=== PATIENT | male | born 1945 | race Caucasian/White ===

== ENCOUNTER 2025-02-27 16:57 | Emergency (ER) | payer MEDICARE ==
[~2025-02-27] VITALS: Ht 172.7 cm; Wt 82.0 kg
[2025-02-27 17:02] VITALS: PULSE 72; RESP 16; O2SAT 99
[2025-02-27 17:07] VITALS: BP 160/82; TEMP 36.9; O2SAT 98
[2025-02-27 17:37] LABS: BASOPHILS % 1.1 % (0.0-2.0); EOSINOPHILS % 1.9 % (0.0-5.0); HEMATOCRIT. 37.1 % (42.0-52.0); HEMOGLOBIN. 12.5 g/dL (14.0-18.0); LYMPHOCYTES % 21.2 % (20.0-50.0); MEAN PLATELET VOLUME 7.0 fl (7.4-10.4); MONOCYTES % 12.8 % (2.0-8.0); NEUTROPHILS % 63.0 % (40.0-76.0); PLATELET 196 x1000/uL (130-400); RED BLOOD CELL COUNT 4.14 mill/uL (4.7-6.1); RED CELL DISTRIBUTION WIDTH 14.3 % (11.6-14.6)
[2025-02-27 17:51] LABS: CREATININE 0.9 mg/dL (0.6-1.3)
[2025-02-27 17:52] LABS: UREA NITROGEN BLOOD 18 mg/dL (9-23)
[2025-02-27 17:53] LABS: ASPARTATE AMINOTRANSFERASE 22 IU/L (<34)
[2025-02-27 17:54] LABS: BILIRUBIN DIRECT 0.2 mg/dL (<=3.0); BILIRUBIN TOTAL 0.8 mg/dL (0.1-1.0); PROTEIN TOTAL 6.6 g/dL (6.0-8.3)
[2025-02-27] MEDS: ONDANSETRON 4MG ODT PO ONE (18:08)
[2025-02-27] MEDS ORDERED: ONDA-239 PO (18:50)
== END 2025-02-27 20:26 | disposition home or self-care (01) ==
LOC: ER 16:57
DX: K52.9 Noninfective gastroenteritis and colitis, unspecified (principal); J45.909 Unspecified asthma, uncomplicated
CPT/HCPCS: 99283; 80076; 80048; 83690; 85025; 36415; Q0162